=== PATIENT | male | born 1990 | race Caucasian/White ===

== ENCOUNTER 2022-12-23 10:11 | Inpatient (IN) | payer OTHER ==
[2022-12-23 10:36] VITALS: BMI 24.6
[2022-12-23] MEDS ORDERED: BENZOCAINE/MENTHOL (CHLORASEPTIC ) LOZENGE MM PRN (12:23)
[2022-12-23] MEDS ORDERED: IBUPROFEN 600 MG TABLET (FP) PO PRN (12:23)
[2022-12-23] MEDS ORDERED: guaiFENesin 600 MG TABLET.ER (FP) PO PRN (12:23)
[2022-12-23] MEDS ORDERED: MAGNESIUM HYDROX 2400MG/30ML ORAL SUSPENSION 30 ML CUP PO PRN (12:23)
[2022-12-23] MEDS ORDERED: COLLOIDAL OATMEAL 1 BAR EACH TP PRN (12:23)
[2022-12-23] MEDS ORDERED: POLYETHYLENE GLYCOL (HEALTHYLAX) 3350 17 GM PACKET PO PRN (12:23)
[2022-12-23] MEDS ORDERED: IBUPROFEN 400 MG TABLET (FP) PO PRN (12:23)
[2022-12-23] MEDS ORDERED: NALOXONE HCL (KLOXXADO) 8 MG SPRAY NS PRN (12:23)
[2022-12-23] MEDS ORDERED: LOPERAMIDE HCL 2 MG CAPSULE PO PRN (12:23)
[2022-12-23] MEDS ORDERED: AMMONIUM LACTATE 12% LOTION 225 GM BOTTLE TP PRN (12:23)
[2022-12-23] MEDS ORDERED: NALOXONE HCL 0.4 MG/ML VIAL IM PRN (12:23)
[2022-12-23] MEDS ORDERED: ACETAMINOPHEN 325 MG TABLET (FP) PO PRN (12:23)
[2022-12-23] MEDS ORDERED: hydrOXYzine PAMOATE 25 MG CAPSULE (FP) PO PRN (12:23)
[2022-12-23] MEDS ORDERED: BENZONATATE 200 MG CAPSULE PO PRN (12:23)
[2022-12-23] MEDS ORDERED: MAG HYDROX/AL HYDROX/SIMETH 30 ML UNIT-DOSE CUP PO PRN (12:23)
[2022-12-23] MEDS ORDERED: TUBERCULIN PPD 5 TU/0.1ML SYRINGE (IN PATIENT USE ONLY) ID ONE (15:00)
[2022-12-23] MEDS ORDERED: TUBERCULIN PPD 5 TU/0.1ML VIAL ID ONE (15:13)
[2022-12-23 17:27] LABS: HEMATOCRIT 32.5 % (35.4-49); HEMOGLOBIN 11.1 GM/dL (11.7-16.9); MCH 28.5 pg (25.7-33.7); MEAN CELL VOLUME 83.6 fl (80-96); MEAN PLT VOLUME 10.8 fl (7.5-11.1); PLATELET COUNT 149 10^3/uL (134-434); RBC 3.88 M/mm3 (4.00-5.60); RDW 14.6 % (11.9-15.9); WHITE BLOOD COUNT 4.4 K/mm3 (4.0-10.0)
[2022-12-23 17:32] LABS: POTASSIUM 4.1 mmol/L (3.5-5.1)
[2022-12-23 17:34] LABS: CALCIUM 8.9 mg/dL (8.5-10.1)
[2022-12-23 17:35] LABS: ALBUMIN 3.7 g/dl (3.4-5.0); BLOOD UREA NITROGEN 10.9 mg/dL (7-18)
[2022-12-23 17:40] LABS: TOT PROT 6.8 g/dl (6.4-8.2)
[2022-12-23 17:59] LABS: SYPHILIS W/ RPR CONF NON-REACTIVE (NONREACTIVE)
[2022-12-23] MEDS: MELATONIN 5 MG TABLETS PO SCH (21:50)
[2022-12-23] MEDS: THIAMINE HCL 100 MG TABLET (FP) PO SCH (21:50)
[2022-12-24] MEDS ORDERED: methaDONE HCL 10 MG TABLET PO SCH (08:45)
[2022-12-24] MEDS ORDERED: methaDONE 80 MG, methaDONE 20 MG PO ONE (09:15)
[2022-12-24] MEDS: PRENATAL VITAMINS W/ FOLIC ACID TABLET (FP) PO SCH (09:34)
[2022-12-24] MEDS: PSYLLIUM 5.85 GM PACKET PO SCH (15:52)
[2022-12-24] MEDS: NICOTINE POLACRILEX 4 MG GUM BUC PRN (16:49)
[2022-12-24 17:19] LABS: URINE APPEARANCE CLEAR; URINE BILIRUBIN NEGATIVE (NEGATIVE); URINE COLOR YELLOW; URINE GLUCOSE (UA) NEGATIVE (NEGATIVE); URINE KETONE NEGATIVE (NEGATIVE); URINE LEUK ESTERASE NEGATIVE (NEGATIVE); URINE NITRITE NEGATIVE (NEGATIVE); URINE PROTEIN NEGATIVE (NEGATIVE)
[2022-12-24] MEDS: MELATONIN 5 MG TABLETS PO SCH (22:32)
[2022-12-24] MEDS: THIAMINE HCL 100 MG TABLET (FP) PO SCH (22:32)
[2022-12-25] MEDS: methaDONE 80 MG, methaDONE 20 MG PO SCH (06:38)
[2022-12-25] MEDS: PSYLLIUM 5.85 GM PACKET PO SCH (10:36)
[2022-12-25] MEDS: PRENATAL VITAMINS W/ FOLIC ACID TABLET (FP) PO SCH (10:36)
[2022-12-25] MEDS ORDERED: DOXYCYCLINE HYCLATE 100 MG TABLET PO ONE (12:29)
[2022-12-25] MEDS: THIAMINE HCL 100 MG TABLET (FP) PO SCH (22:55)
[2022-12-25] MEDS: MELATONIN 5 MG TABLETS PO SCH (22:55)
[2022-12-26] MEDS: methaDONE 80 MG, methaDONE 20 MG PO SCH (06:10)
[2022-12-26] MEDS: FERROUS SO4 325 MG TABLET (FP) PO SCH (10:46)
[2022-12-26] MEDS: PSYLLIUM 5.85 GM PACKET PO SCH (10:46)
[2022-12-26] MEDS: PRENATAL VITAMINS W/ FOLIC ACID TABLET (FP) PO SCH (10:47)
[2022-12-26] MEDS: NICOTINE 10 MG CARTRIDGE (INHALER) IH PRN (17:28)
[2022-12-26] MEDS: MELATONIN 5 MG TABLETS PO SCH (22:26)
[2022-12-26] MEDS: THIAMINE HCL 100 MG TABLET (FP) PO SCH (22:26)
[2022-12-27] MEDS: methaDONE 80 MG, methaDONE 20 MG PO SCH (06:18)
[2022-12-27] MEDS: NICOTINE 10 MG CARTRIDGE (INHALER) IH PRN ×4 (06:20→21:44)
[2022-12-27] MEDS: PRENATAL VITAMINS W/ FOLIC ACID TABLET (FP) PO SCH (10:31)
[2022-12-27] MEDS: PSYLLIUM 5.85 GM PACKET PO SCH (10:31)
[2022-12-27] MEDS: FERROUS SO4 325 MG TABLET (FP) PO SCH (10:31)
[2022-12-27] MEDS: MELATONIN 5 MG TABLETS PO SCH (21:44)
[2022-12-27] MEDS: THIAMINE HCL 100 MG TABLET (FP) PO SCH (21:44)
[2022-12-28] MEDS: methaDONE 80 MG, methaDONE 20 MG PO SCH (06:06)
[2022-12-28] MEDS: NICOTINE 10 MG CARTRIDGE (INHALER) IH PRN ×3 (06:07→17:34)
[2022-12-28] MEDS: PRENATAL VITAMINS W/ FOLIC ACID TABLET (FP) PO SCH (10:12)
[2022-12-28] MEDS: FERROUS SO4 325 MG TABLET (FP) PO SCH (10:12)
[2022-12-28] MEDS: PSYLLIUM 5.85 GM PACKET PO SCH (10:13)
[2022-12-28] MEDS: MELATONIN 5 MG TABLETS PO SCH (22:04)
[2022-12-28] MEDS: THIAMINE HCL 100 MG TABLET (FP) PO SCH (22:04)
[2022-12-29] MEDS: NICOTINE 10 MG CARTRIDGE (INHALER) IH PRN ×2 (06:17→10:11)
[2022-12-29] MEDS: methaDONE 80 MG, methaDONE 20 MG PO SCH (06:17)
[2022-12-29] MEDS: PSYLLIUM 5.85 GM PACKET PO SCH (10:11)
[2022-12-29] MEDS: PRENATAL VITAMINS W/ FOLIC ACID TABLET (FP) PO SCH (10:11)
[2022-12-29] MEDS: FERROUS SO4 325 MG TABLET (FP) PO SCH ×2 (10:11→12:13)
[2022-12-29] MEDS: MELATONIN 5 MG TABLETS PO SCH (21:43)
[2022-12-29] MEDS: THIAMINE HCL 100 MG TABLET (FP) PO SCH (21:43)
[2022-12-30] MEDS: NICOTINE 10 MG CARTRIDGE (INHALER) IH PRN ×4 (06:31→21:16)
[2022-12-30] MEDS: methaDONE 80 MG, methaDONE 20 MG PO SCH (06:31)
[2022-12-30] MEDS: FERROUS SO4 325 MG TABLET (FP) PO SCH (07:22)
[2022-12-30] MEDS: PRENATAL VITAMINS W/ FOLIC ACID TABLET (FP) PO SCH (10:22)
[2022-12-30] MEDS: PSYLLIUM 5.85 GM PACKET PO SCH (10:22)
[2022-12-30] MEDS: MELATONIN 5 MG TABLETS PO SCH (21:16)
[2022-12-30] MEDS: THIAMINE HCL 100 MG TABLET (FP) PO SCH (21:16)
[2022-12-31] MEDS: methaDONE 80 MG, methaDONE 20 MG PO SCH (06:29)
[2022-12-31] MEDS: NICOTINE 10 MG CARTRIDGE (INHALER) IH PRN ×4 (06:29→21:16)
[2022-12-31] MEDS: FERROUS SO4 325 MG TABLET (FP) PO SCH (07:05)
[2022-12-31] MEDS: PRENATAL VITAMINS W/ FOLIC ACID TABLET (FP) PO SCH (10:05)
[2022-12-31] MEDS: PSYLLIUM 5.85 GM PACKET PO SCH (10:05)
[2022-12-31] MEDS: MELATONIN 5 MG TABLETS PO SCH (21:16)
[2022-12-31] MEDS: THIAMINE HCL 100 MG TABLET (FP) PO SCH (21:16)
[2023-01-01] MEDS: methaDONE 80 MG, methaDONE 20 MG PO SCH (06:33)
[2023-01-01] MEDS: NICOTINE 10 MG CARTRIDGE (INHALER) IH PRN ×4 (06:34→18:39)
[2023-01-01] MEDS: FERROUS SO4 325 MG TABLET (FP) PO SCH (07:04)
[2023-01-01] MEDS: PRENATAL VITAMINS W/ FOLIC ACID TABLET (FP) PO SCH (10:24)
[2023-01-01] MEDS: PSYLLIUM 5.85 GM PACKET PO SCH (10:24)
[2023-01-01] MEDS: MELATONIN 5 MG TABLETS PO SCH (21:15)
[2023-01-01] MEDS: THIAMINE HCL 100 MG TABLET (FP) PO SCH (21:15)
[2023-01-02] MEDS: methaDONE 80 MG, methaDONE 20 MG PO SCH (06:19)
[2023-01-02] MEDS: NICOTINE 10 MG CARTRIDGE (INHALER) IH PRN ×4 (06:20→21:54)
[2023-01-02] MEDS: FERROUS SO4 325 MG TABLET (FP) PO SCH (07:08)
[2023-01-02] MEDS: PRENATAL VITAMINS W/ FOLIC ACID TABLET (FP) PO SCH (10:04)
[2023-01-02] MEDS: PSYLLIUM 5.85 GM PACKET PO SCH (10:04)
[2023-01-02] MEDS: THIAMINE HCL 100 MG TABLET (FP) PO SCH (21:54)
[2023-01-02] MEDS: MELATONIN 5 MG TABLETS PO SCH (21:54)
[2023-01-03] MEDS: NICOTINE 10 MG CARTRIDGE (INHALER) IH PRN ×5 (06:08→22:31)
[2023-01-03] MEDS: methaDONE 80 MG, methaDONE 20 MG PO SCH (06:08)
[2023-01-03] MEDS: FERROUS SO4 325 MG TABLET (FP) PO SCH (07:14)
[2023-01-03] MEDS: PSYLLIUM 5.85 GM PACKET PO SCH (09:48)
[2023-01-03] MEDS: PRENATAL VITAMINS W/ FOLIC ACID TABLET (FP) PO SCH (09:49)
[2023-01-03] MEDS: MELATONIN 5 MG TABLETS PO SCH (21:28)
[2023-01-03] MEDS: THIAMINE HCL 100 MG TABLET (FP) PO SCH (21:28)
[2023-01-04] MEDS: methaDONE 80 MG, methaDONE 20 MG PO SCH (06:05)
[2023-01-04] MEDS: NICOTINE 10 MG CARTRIDGE (INHALER) IH PRN ×5 (06:05→22:03)
[2023-01-04] MEDS: FERROUS SO4 325 MG TABLET (FP) PO SCH (07:05)
[2023-01-04] MEDS: NICOTINE 21 MG/24 HOURS TOPICAL PATCH TD PRN (10:02)
[2023-01-04] MEDS: PSYLLIUM 5.85 GM PACKET PO SCH (10:03)
[2023-01-04] MEDS: PRENATAL VITAMINS W/ FOLIC ACID TABLET (FP) PO SCH (10:03)
[2023-01-04] MEDS: THIAMINE HCL 100 MG TABLET (FP) PO SCH (22:03)
[2023-01-04] MEDS: MELATONIN 5 MG TABLETS PO SCH (22:03)
[2023-01-05] MEDS: methaDONE 80 MG, methaDONE 20 MG PO SCH (06:12)
[2023-01-05] MEDS: NICOTINE 10 MG CARTRIDGE (INHALER) IH PRN ×4 (06:12→22:16)
[2023-01-05] MEDS: NICOTINE 21 MG/24 HOURS TOPICAL PATCH TD PRN (06:14)
[2023-01-05] MEDS: FERROUS SO4 325 MG TABLET (FP) PO SCH (07:06)
[2023-01-05] MEDS ORDERED: FERROUS SO4 325 MG TABLET (FP) PO PRN (09:13)
[2023-01-05] MEDS: NICOTINE POLACRILEX 4 MG GUM BUC PRN (10:01)
[2023-01-05] MEDS: PSYLLIUM 5.85 GM PACKET PO SCH (10:05)
[2023-01-05] MEDS: PRENATAL VITAMINS W/ FOLIC ACID TABLET (FP) PO SCH (10:06)
[2023-01-05] MEDS: MELATONIN 5 MG TABLETS PO SCH (22:16)
[2023-01-05] MEDS: THIAMINE HCL 100 MG TABLET (FP) PO SCH (22:16)
[2023-01-06] MEDS: NICOTINE 10 MG CARTRIDGE (INHALER) IH PRN ×4 (06:19→21:15)
[2023-01-06] MEDS: methaDONE 80 MG, methaDONE 20 MG PO SCH (06:19)
[2023-01-06] MEDS: NICOTINE 21 MG/24 HOURS TOPICAL PATCH TD PRN (09:57)
[2023-01-06] MEDS: PRENATAL VITAMINS W/ FOLIC ACID TABLET (FP) PO SCH (10:01)
[2023-01-06] MEDS: PSYLLIUM 5.85 GM PACKET PO SCH (10:01)
[2023-01-06] MEDS: MELATONIN 5 MG TABLETS PO SCH (21:15)
[2023-01-06] MEDS: THIAMINE HCL 100 MG TABLET (FP) PO SCH (21:15)
[2023-01-07] MEDS: methaDONE 80 MG, methaDONE 20 MG PO SCH (06:33)
[2023-01-07] MEDS: NICOTINE 10 MG CARTRIDGE (INHALER) IH PRN ×4 (06:33→21:25)
[2023-01-07] MEDS: NICOTINE 21 MG/24 HOURS TOPICAL PATCH TD PRN (09:49)
[2023-01-07] MEDS: PRENATAL VITAMINS W/ FOLIC ACID TABLET (FP) PO SCH (09:49)
[2023-01-07] MEDS: PSYLLIUM 5.85 GM PACKET PO SCH (09:49)
[2023-01-07] MEDS: THIAMINE HCL 100 MG TABLET (FP) PO SCH (21:26)
[2023-01-07] MEDS: MELATONIN 5 MG TABLETS PO SCH (21:26)
[2023-01-08] MEDS: methaDONE 80 MG, methaDONE 20 MG PO SCH (06:42)
[2023-01-08] MEDS: NICOTINE 10 MG CARTRIDGE (INHALER) IH PRN ×4 (06:42→21:21)
[2023-01-08] MEDS: PSYLLIUM 5.85 GM PACKET PO SCH (10:15)
[2023-01-08] MEDS: PRENATAL VITAMINS W/ FOLIC ACID TABLET (FP) PO SCH (10:15)
[2023-01-08] MEDS: NICOTINE 21 MG/24 HOURS TOPICAL PATCH TD PRN (10:16)
[2023-01-08] MEDS: THIAMINE HCL 100 MG TABLET (FP) PO SCH (21:21)
[2023-01-08] MEDS: MELATONIN 5 MG TABLETS PO SCH (21:21)
[2023-01-09] MEDS: methaDONE 80 MG, methaDONE 20 MG PO SCH (06:07)
[2023-01-09] MEDS: NICOTINE 10 MG CARTRIDGE (INHALER) IH PRN ×5 (06:08→21:17)
[2023-01-09] MEDS: NICOTINE 21 MG/24 HOURS TOPICAL PATCH TD PRN (10:00)
[2023-01-09] MEDS: PSYLLIUM 5.85 GM PACKET PO SCH (10:00)
[2023-01-09] MEDS: PRENATAL VITAMINS W/ FOLIC ACID TABLET (FP) PO SCH (10:00)
[2023-01-09] MEDS ORDERED: PRENATAL VITAMINS W/ FOLIC ACID TABLET (FP) PO PRN (13:14)
[2023-01-09] MEDS ORDERED: PSYLLIUM 5.85 GM PACKET PO PRN (13:14)
[2023-01-09] MEDS: NICOTINE POLACRILEX 4 MG GUM BUC PRN (14:11)
[2023-01-09] MEDS: MELATONIN 5 MG TABLETS PO SCH (21:17)
[2023-01-09] MEDS: THIAMINE HCL 100 MG TABLET (FP) PO SCH (21:17)
[2023-01-10] MEDS: NICOTINE 10 MG CARTRIDGE (INHALER) IH PRN ×3 (06:05→21:50)
[2023-01-10] MEDS: methaDONE 80 MG, methaDONE 20 MG PO SCH (06:05)
[2023-01-10] MEDS: NICOTINE 21 MG/24 HOURS TOPICAL PATCH TD PRN (09:57)
[2023-01-10] MEDS: MELATONIN 5 MG TABLETS PO SCH (21:50)
[2023-01-10] MEDS: THIAMINE HCL 100 MG TABLET (FP) PO SCH (21:50)
[2023-01-11] MEDS: methaDONE 80 MG, methaDONE 20 MG PO SCH (05:59)
[2023-01-11] MEDS: NICOTINE 10 MG CARTRIDGE (INHALER) IH PRN ×4 (05:59→21:34)
[2023-01-11] MEDS: NICOTINE 21 MG/24 HOURS TOPICAL PATCH TD PRN (09:47)
[2023-01-11] MEDS: THIAMINE HCL 100 MG TABLET (FP) PO SCH (21:34)
[2023-01-11] MEDS: MELATONIN 5 MG TABLETS PO SCH (21:34)
[2023-01-12] MEDS: methaDONE 80 MG, methaDONE 20 MG PO SCH (06:01)
[2023-01-12] MEDS: NICOTINE 10 MG CARTRIDGE (INHALER) IH PRN ×3 (06:02→14:06)
[2023-01-12] MEDS: NICOTINE 21 MG/24 HOURS TOPICAL PATCH TD PRN (10:02)
[2023-01-12] MEDS: MELATONIN 5 MG TABLETS PO SCH (21:46)
[2023-01-12] MEDS: THIAMINE HCL 100 MG TABLET (FP) PO SCH (21:46)
[2023-01-13] MEDS: NICOTINE 10 MG CARTRIDGE (INHALER) IH PRN (06:08)
[2023-01-13] MEDS ORDERED: methaDONE 80 MG, methaDONE 20 MG PO SCH (06:30)
[2023-01-13] MEDS ORDERED: methaDONE HCL 10 MG TABLET PO SCH (06:30)
[2023-01-13 06:57] VITALS: BP 103/65; PULSE 68; RESP 17; TEMP 97.5
== END 2023-01-13 09:34 | disposition home or self-care (01) | DRG 772 ==
LOC: YASAS 10:11 → Y3W 14:32
PROVIDERS: ADMIT Allergy & Immunology; ATTEND Psychiatry & Neurology Pain Medicine
PROC: HZ42ZZZ Group Counseling for Substance Abuse Treatment, Cognitive-Behavioral (ICD-10-PCS; principal; 2022-12-23)
DX: F14.20 Cocaine dependence, uncomplicated (principal); F11.20 Opioid dependence, uncomplicated; F12.20 Cannabis dependence, uncomplicated; F17.210 Nicotine dependence, cigarettes, uncomplicated; D64.9 Anemia, unspecified; S20.462A Insect bite (nonvenomous) of left back wall of thorax, initial encounter; Y92.410 Unspecified street and highway as the place of occurrence of the external cause
CPT/HCPCS: 36415; 80053; 81003; 85027; 86780; 86803; 93005; 93010; C9803-CS; U0003; U0005